=== PATIENT | female | born 1970 | race Caucasian/White ===

== ENCOUNTER → 2016-06-16 | Outpatient (CLI) | payer OTHER ==
[~2016-06-16] MED LIST: ATEN50TA8 PO; SYN100 PO; TRAMTAB5
[2016-06-16 13:57] LABS: ESTIMATED AVERAGE GLUCOSE 214 mg/dl; HA1C FLAG Normal (Normal)
[2016-06-16 14:24] LABS: THYROID STIMULATING HORMONE 0.377 uIu/ml (0.300-4.500)
[2016-06-16 20:04] LABS: RATIO 15.1 mcg/mg (0-30.0)
== END | disposition home or self-care (01) ==
LOC: C.LABMFLN 17:40
PROVIDERS: ATTEND Internal Medicine Endocrinology, Diabetes & Metabolism
DX: E10.9 Type 1 diabetes mellitus without complications (principal)

== ENCOUNTER → 2017-07-31 | Outpatient (CLI) | payer OTHER ==
[2017-07-31 15:04] LABS: ALT/SGPT 30 U/L (12-78); AST/SGOT 19 U/L (15-37); BLOOD UREA NITROGEN 16 mg/dl (7-18); CALCIUM 9.1 mg/dl (8.5-10.1); CARBON DIOXIDE 30 mmol/L (21-32); CREATININE 0.83 mg/dl (0.60-1.20); GLUCOSE 133 mg/dl (70-99); SODIUM 137 mmol/L (136-145)
[2017-07-31 15:14] LABS: ALKALINE PHOSPHATASE 97 U/L (45-117); LDL CHOLESTEROL (DIRECT) 85 mg/dl; TOTAL PROTEIN 7.8 gm/dl (6.4-8.2)
[2017-08-01 06:39] LABS: HEMOGLOBIN A1C 9.5 % (4.5-5.6)
== END | disposition home or self-care (01) ==
LOC: C.LAB1850 13:36
PROVIDERS: ATTEND Internal Medicine Endocrinology, Diabetes & Metabolism
DX: E03.9 Hypothyroidism, unspecified (principal); E10.9 Type 1 diabetes mellitus without complications; E78.5 Hyperlipidemia, unspecified

== ENCOUNTER 2023-11-23 05:56 | Observation (INO) ==
--- NOTE | 2023-11-10 11:19 | Anesthesiology Consultation ---
Date of Service November 10, 2023 Assessment & Plan (1) Encounter for pre-operative examination: - Check BSG AM DOS - Infectious disease screening: Per assessment on 11/10/23: No known infectious disease contacts or current infectious disease symptoms. No noted recent Covid positive test result. - Cardiology visit (10/10/23): "Patient was in her usual state of health when she woke up on the morning of 10/01/2023, however after she got to work she started to notice intermittent palpitations described as heart racing with her heart rate increasing into the 120s and 130's. These palpitations were occurring off and on throughout the day. After she arrived at home and was making dinner the palpitations started again, but they did not go away. This is when she noticed her blood pressure was starting to go up and she was feeling anxious. In total her heart rate was in the 130's for a total of about 2 hours altogether. She decided to go to the [facility] ER for further evaluation. She had not taken her evening dose of Toprol-XL before going to the ER. Her EKG's showed atrial tachycardia at a rate of 135 beats per minute with downsloping ST segment depression in the inferolateral leads. EKG #2 showed atrial tachycardia at a rate of 133 beats per minute with downsloping ST segment depression in the inferolateral leads.. Her initial high sensitivity troponin T was normal at 8 ng/L and her follow-up value was < 6 ng/L. As she was having an IV started, the patient's atrial tachycardia broke and she was in a normal sinus rhythm at 82 bpm. The ER staff gave her her usual evening dose of Toprol-XL. She remained in a normal sinus rhythm thereafter. Patient has not had any recurrent palpitations since that time. Her blood pressure is still variable. Her average blood pressure reading according to her home readings is 142/91. Recommend the following.. Order for a dobutamine stress echocardiogram given to the patient.. DSE ordered because of her downsloping ST segment depression in the inferolateral leads when she was in atrial tachycardia, I have reassured her that her negative high sensitivity troponin T levels are reassuring that she did not have ischemia.. Increase Amlodipine to 5 mg daily.. Continue Toprol.. Continue Lisinopril.. Continue Aspirin 81 mg daily." - Patient had subsequent DSE done 10/18/23- notes stress echo negative for inducible ischemia but stress EKG portion positive for ischemia. [facility] 10/18/23 150/80. Workload message sent to [facility] regarding upcoming surgery. Received response from cardio 11/13/23, "No further stress testing is needed. Patient is an acceptable surgical risk to proceed with adrenalectomy as planned." Chart Review Chart Review: Acceptable Risk for Surgery (pending evaluation DOS) and Patient NOT seen in Pre Admission Testing History Surgery Operation Date: 11/23/23 09:30 Proposed Procedures p Robotic Assisted Laparoscopic Adrenalectomy-Left - Makr Padron, DO Height/Weight Height: 5 ft 6 in Weight: 61.235 kg Allergies Allergy/AdvReac Type Severity Reaction Status Date / Time No Known Allergies Allergy Unknown Verified 10/11/23 13:08 Medications Home Medications Medication Instructions Recorded Confirmed Last Taken aspirin 81 mg chewable tablet 81 mg PO DAILY #100 tabs 02/05/19 11/10/23 Unknown blood sugar diagnostic (Accu-Chek #10 ea 02/05/19 10/11/23 Unknown Anastasia Plus test strips) hydrocodone 5 mg-acetaminophen 300 1 tab PO Q6H PRN Pain 02/05/19 11/10/23 Unknown mg tablet insulin glargine 100 unit/mL (3 21 units subcut .COMPLEX 02/05/19 11/10/23 Unknown mL) subcutaneous pen (Basaglar KwikPen U-100 Insulin) omeprazole 40 mg capsule,delayed 40 mg PO QAM PRN Acid Reflux 03/09/20 11/10/23 Unknown release acetone (urine) test (Ketostix #25 ea 11/24/21 10/11/23 Unknown strips) blood-glucose sensor (Dexcom G6 #2 ea 03/02/22 10/11/23 Unknown Sensor device) subcutaneous insulin pump (t:slim #1 ea 03/02/22 10/11/23 Unknown X2 Basal-IQ Insulin Pump) glucagon HCl 1 mg solution for 1 mg subcut Q20M PRN hypoglycemia 03/03/22 11/10/23 Unknown injection (Glucagon (HCl) #1 ea Emergency Kit) insulin syringe-needle U-100 1 mL #100 ea 09/14/22 10/11/23 Unknown 31 gauge x 5/16" (BD Insulin Syringe Ultra-Fine) atorvastatin 20 mg tablet 20 mg PO HS #90 tabs 01/12/23 11/10/23 Unknown metoprolol succinate 50 mg 50 mg PO BID 03/27/23 11/10/23 Unknown tablet,extended release 24 hr lisinopril 40 mg tablet 40 mg PO DAILY #90 tabs 03/28/23 11/10/23 Unknown fluocinonide 0.05 % topical 1 applic topical BID PRN Skin 05/18/23 11/10/23 Unknown solution Irritation insulin glulisine U-100 100 50 unit (0.5 mL) continuous 08/08/23 11/10/23 Unknown unit/mL subcutaneous solution subcutaneous infusion QAM #50 mL (Apidra U-100 Insulin) levothyroxine 112 mcg tablet 112 mcg PO Q OTHER DAY #45 tabs 08/25/23 11/10/23 Unknown levothyroxine 125 mcg tablet 125 mcg PO Q OTHER DAY #45 tabs 08/25/23 11/10/23 Unknown dexamethasone 1 mg tablet 3 mg (3 x 1 mg) PO .COMPLEX #3 tabs 08/29/23 11/10/23 Unknown amlodipine 5 mg tablet 5 mg PO DAILY #90 tabs 10/10/23 11/10/23 Unknown cholecalciferol (vitamin D3) 1,250 50,000 unit PO Q7D #2 caps 10/18/23 11/10/23 Unknown mcg (50,000 unit) capsule albuterol sulfate 90 mcg/actuation 1 inh inhalation QID PRN sob 11/10/23 11/10/23 Unknown aerosol inhaler insulin aspart U-100 100 unit/mL 50 unit (0.5 mL) .Route DAILY 11/10/23 Unknown subcutaneous solution E11.9 #50 mL Past Medical History Medical History Adrenal adenoma B/L adrenal adenomas/nodules Adrenal mass, left COPD (chronic obstructive pulmonary disease) Coronary artery calcification Diabetes type 1, controlled Dyslipidemia Fatty liver History of COVID-19 (2020) Symptoms resolved History of diverticulosis HTN (hypertension) Hx of supraventricular tachycardia Hypothyroidism Insulin pump in place Osteoarthritis Paroxysmal atrial tachycardia Hx Past Family History Family History Father Diabetes Hypertension Kidney disease Sister Graves disease Mother Hypothyroid Lupus (systemic lupus erythematosus) Past Surgical History Surgical History History of bilateral tubal ligation History of breast lump/mass excision History of History of cryosurgery cervix History of endometrial ablation History of left salpingo-oophorectomy History of partial thyroidectomy History of postoperative nausea and vomiting Hx of cardiac catheterization (2009) no stents Hx of cholecystectomy Hx of colonoscopy Hx of hysterectomy Social History Smoking Status: Current every day smoker Smoking cigarettes per day: 20 per day- advised Do You Dip or Chew Tobacco: No Hx Alcohol Use: No Hx Substance Use: No substance use type: does not use Lab Results Anesthesia Preop Results Results Anesthesia Widget: WBC 5.26 K/ul (4.8-10.8) 11/02/23 Hgb 12.7 g/dl (12.0-16.0) 11/02/23 Hct 39.3 % (37.0-47.0) 11/02/23 Plt 181 K/uL (130-400) 11/02/23 Na 140 mmol/L (136-145) 11/02/23 K 4.1 mmol/L (3.5-5.1) 11/02/23 Cl 107 mmol/L (98-107) 11/02/23 CO2 28 mmol/L (21-32) 11/02/23 BUN 18 mg/dl (6-23) 11/02/23 Creat 0.70 mg/dl (0.6-1.2) 11/02/23 Glucose Level 256 mg/dl (70-99(Fasting)) H 11/02/23 TSH 1.365 uIu/ml (0.300-4.500) 10/10/23 HA1c 8.7 % (4.5-5.6) H 10/10/23 Testing Laboratory Results 11/02/23 Urine culture: probable skin gisel 10/11/23 UA: negative 04/21/23 (labs done for evaluation of adrenal mass*) Ur Norepineph 51 (WNL) Calc Tot E+NE 51 (WNL) Urine Dopamine 226 (WNL) Creatinine, 24 1.15 (WNL) Metanephrine 143 (WNL) Normet Urine 356 (WNL) Total Metanephr 499 (WNL) Electrocardiogram Date: 10/01/23 NSR at 83bpm. NS TWA. Chest X-Ray Date: 10/01/23 Findings: + NAD CT PE Date: 10/01/23 No acute findings. Stress Test Date: 10/18/23 Type: DSE Stress echo negative for inducible ischemia. ECG stress test positive for inducible ischemia with 1mm horizontal ST depression leads II, III, AVF, V3-V6. Rest echo: LVEF 55-59%. Mild MR/TR. Mildly enlarged proximal ascending thoracic aorta. Other Testing CT Abdomen/Pelvis Date: 07/27/23 Bilateral adrenal adenomas, stable in size since CT 06/01/2023.
--- NOTE | 2023-11-22 08:54 | Communication Note ---
Patient scheduled for "Robotic Assisted Laparoscopic Adrenalectomy - Left" with Dr. Padron on 11/23/23. Surgeon's office called over to PAT stating patient was unsure if insulin pump n eeded removed or moved for procedure as it may be in the surgical field. Explained to surgeon's office that it would be up to surgeon's discretion if insulin pump needed removed/moved for procedure and if so patient would need to discuss with whoever manages diabetes if insulin pump does not routinely get replaced/moved around. Per later update from surgeon's office- patient's insulin pump is located on right side of abdomen- procedure is being done on left side. Patient does have small lump from where insulin pump used to be located on the left side. Surgeon has no issues. No issues from anesthesia standpoint as long as area does not seem infected DOS.
[2023-11-23] MEDS ORDERED: ACETAMINOPHEN 1000 MG/100 ML IV IV ONE (06:30)
[2023-11-23] MEDS ORDERED: REMIFENTANIL HCL 1 MG VIAL IV ONE (06:30)
--- NOTE | 2023-11-23 06:38 | History & Physical Report ---
Date of Service November 23, 2023 Assessment & Plan (1) Adrenal adenoma: (2) Adrenal mass, left: (3) Diabetes type 1, controlled: (4) HTN (hypertension): (5) Coronary artery calcification: (6) Paroxysmal atrial tachycardia: (7) COPD (chronic obstructive pulmonary disease): Plan Patient with 4.8 cm mass/lesion of the left adrenal. Had underwent endocrine assessment. Possible cortisol functionality. Extensive evaluation. Large size and features extensively reviewed. Patient has multiple comorbidities and underwent extensive preoperative assessment and clearance. Risks and benefits discussed at length for procedure. These include bleeding, infection, injury to surrounding tissues or organs, and risks associated with anesthesia. Patient states understanding and agrees to proceed. Will sign consent and proceed. Plan for Left Robot Assisted laparoscopic adrenalectomy. Endocrine recommended steroid management with procedure due to possible cortisol functionality. Will plan for post procedure monitoring. History of Present Illness Primary Care Provider: Kira Vogt Patient here for procedure. No changes in medical issues. No major changes in urinary issues. Continued issues and concerns. No change in pain or discomfort. No severe fevers or chills. No chest pain or shortness of breath. Patient with 4.8 cm lesion of left adrenal gland. Risks and benefits discussed at length for procedure. These include bleeding, infection, injury to surrounding tissues or organs, and risks associated with a nesthesia. Patient and/or family states understanding and agrees to proceed. Consent and supporting information completed. Allergies Allergy/AdvReac Type Severity Reaction Status Date / Time No Known Allergies Allergy Unknown Verified 11/23/23 06:19 Home Medications Medication Instructions Recorded Confirmed Type aspirin 81 mg chewable tablet 81 mg PO DAILY #100 tabs 02/05/19 11/23/23 History blood sugar diagnostic (Accu-Chek #10 ea 02/05/19 11/15/23 History Anastasia Plus test strips) hydrocodone 5 mg-acetaminophen 300 1 tab PO Q6H PRN Pain 02/05/19 11/23/23 History mg tablet insulin glargine 100 unit/mL (3 21 units subcut .COMPLEX 02/05/19 11/23/23 History mL) subcutaneous pen (Basaglar KwikPen U-100 Insulin) omeprazole 40 mg capsule,delayed 40 mg PO QAM PRN Acid Reflux 03/09/20 11/23/23 History release acetone (urine) test (Ketostix #25 ea 11/24/21 11/15/23 Rx strips) blood-glucose sensor (Dexcom G6 #2 ea 03/02/22 11/15/23 Rx Sensor device) subcutaneous insulin pump (t:slim #1 ea 03/02/22 11/15/23 Rx X2 Basal-IQ Insulin Pump) glucagon HCl 1 mg solution for 1 mg subcut Q20M PRN hypoglycemia 03/03/22 11/23/23 Rx injection (Glucagon (HCl) #1 ea Emergency Kit) insulin syringe-needle U-100 1 mL #100 ea 09/14/22 11/15/23 Rx 31 gauge x 5/16" (BD Insulin Syringe Ultra-Fine) atorvastatin 20 mg tablet 20 mg PO HS #90 tabs 01/12/23 11/23/23 Rx metoprolol succinate 50 mg 50 mg PO BID 03/27/23 11/23/23 History tablet,extended release 24 hr fluocinonide 0.05 % topical 1 applic topical BID PRN Skin 05/18/23 11/23/23 History solution Irritation insulin glulisine U-100 100 50 unit (0.5 mL) continuous 08/08/23 11/10/23 Rx unit/mL subcutaneous solution subcutaneous infusion QAM #50 mL (Apidra U-100 Insulin) levothyroxine 112 mcg tablet 112 mcg PO Q OTHER DAY #45 tabs 08/25/23 11/23/23 Rx levothyroxine 125 mcg tablet 125 mcg PO Q OTHER DAY #45 tabs 08/25/23 11/23/23 Rx amlodipine 5 mg tablet 5 mg PO DAILY #90 tabs 10/10/23 11/23/23 Rx albuterol sulfate 90 mcg/actuation 1 inh inhalation QID PRN sob 11/10/23 11/23/23 History aerosol inhaler insulin aspart U-100 100 unit/mL 50 unit (0.5 mL) .Route DAILY 11/10/23 11/23/23 Rx subcutaneous solution E11.9 #50 mL cholecalciferol (vitamin D3) 50 50 mcg PO DAILY 11/23/23 11/23/23 History mcg (2,000 unit) capsule (Vitamin D3) lisinopril 40 mg tablet 20 mg PO DAILY 11/23/23 11/23/23 History Past Med/Surg History Problem List Encounter for pre-operative examination Vitamin D deficiency (Chronic) Medical History Osteoarthritis Insulin pump in place Dyslipidemia Coronary artery calcification Paroxysmal atrial tachycardia Hx Adrenal mass, left Diabetes type 1, controlled Adrenal adenoma B/L adrenal adenomas/nodules Hypothyroidism History of diverticulosis Fatty liver HTN (hypertension) History of COVID-19 (2020) Symptoms resolved COPD (chronic obstructive pulmonary disease) Hx of supraventricular tachycardia Surgical History History of postoperative nausea and vomiting Hx of colonoscopy Hx of cardiac catheterization (2009) no stents History of cryosurgery cervix Hx of cholecystectomy History of History of breast lump/mass excision History of endometrial ablation Hx of hysterectomy History of bilateral tubal ligation History of left salpingo-oophorectomy History of partial thyroidectomy Family History Father Diabetes Hypertension Kidney disease Sister Graves disease Mother Hypothyroid Lupus (systemic lupus erythematosus) Social History Smoking Status: Current every day smoker Tobacco Type: Cigarettes Cigarettes Per Day: 20 per day- advised; Second Hand Exposure: No; Do You Dip or Chew Tobacco: No; Tobacco Cessation Education Requested by Patient: No Hx Alcohol Use: No Hx Substance Use: No Preferred Language: Amharic Communication Ability: Effective Case Advocate Required: No Beliefs That Will Affect Care: None marital status: Single Current Living Situation: Family Other Information That Helps Us Care for You: No Feels Safe at Home: Yes Safety Concerns: Feels Safe At This Time Assistive Devices: None Review of Systems All systems reviewed & are unremarkable except as noted in HPI & below Physical Exam Physical Exam: General: Alert/Arousable. No Acute illness. . HEENT: Inspection normal. Normal inspection of face. Normal inspection of neck. Psychologic: Normal affect/No change in mentation. Respiratory: No use of accessory muscles. No respiratory changes or exacerbation or changes with tachypnea or dyspnea. Cardiovascular: No tachycardia Skin: Pick[place] and Dry. No new rashes or visible lesions. Abdomen: Normal inspection. No guarding. Results & Data Vital Signs (Past 12 Hours) Vital Signs Temp Pulse Resp BP Pulse Ox O2 Del Method 11/23/23 06:20 36.5 C 65 18 153/93 H 100 Room Air PG Care Time/CCT Total # of Minutes Spent Total Time Spent with Patient: Total time spent is greater than 50% in coordination of care (as documented) at patient's floor/unit and/or counseling patient: Coding Level of Care Code None Diagnoses Adrenal adenoma D35.00 Adrenal mass, left E27.8 Diabetes type 1, controlled E10.9 HTN (hypertension) I10 Coronary artery calcification I25.10; I25.84 Paroxysmal atrial tachycardia I47.19 COPD (chronic obstructive pulmonary disease) J44.9
[2023-11-23] MEDS: LR 15ML/HR IV SCH (06:45)
[2023-11-23] MEDS ORDERED: fentaNYL citrate PF 100 MCG/2 ML VIAL ONE (06:56)
[2023-11-23] MEDS ORDERED: MIDAZOLAM HCL 1 MG/ML 2ML VIAL ONE (06:57)
[2023-11-23] MEDS ORDERED: ROCURONIUM BROMIDE 10 MG/ML 5 ML VIAL IV ONE ×3 (06:59→09:29)
[2023-11-23] MEDS ORDERED: GLYCOPYRROLATE 0.2 MG/ML VIAL ONE (06:59)
[2023-11-23] MEDS: SCOPOLAMINE 1 MG/72 HR TDSY PATCH TD ONE ×2 (06:59→07:08)
[2023-11-23] MEDS ORDERED: ONDANSETRON INJ 2 MG/ML 2 ML VIAL ONE (06:59)
[2023-11-23] MEDS ORDERED: DEXAMETHASONE SOD INJ 4 MG/ML VIAL ONE ×2 (06:59→09:42)
[2023-11-23] MEDS ORDERED: PROPOFOL IV EMULSION 10 MG/ML 20 ML VIAL IV ONE ×2 (06:59)
[2023-11-23] MEDS ORDERED: LIDOCAINE 2% 2 ML VIAL/AMP(20MG/ML) INFIL ONE (06:59)
[2023-11-23] MEDS ORDERED: DexMEDEtomidine HCL IV 100 MCG/ML VIAL IV ONE (07:00)
[2023-11-23] MEDS ORDERED: PROMETHAZINE HCL 6.25 MG in SODIUM CHLORIDE 0.9% 50 ML IV PRN (07:23)
[2023-11-23] MEDS ORDERED: ATROPINE SULFATE 0.1 MG/ML 10ML SYR IV PRN (07:23)
[2023-11-23] MEDS ORDERED: HYDROmorphone INJ 1 MG/ML SYRINGE IV PRN (07:23)
[2023-11-23] MEDS ORDERED: ONDANSETRON INJ 2 MG/ML 2 ML VIAL IV PRN ×2 (07:23→12:43)
[2023-11-23] MEDS ORDERED: ePHEDrine sulfate 50 MG/ML AMP IV PRN (07:23)
[2023-11-23] MEDS: ceFAZolin 2000MG 2,000 MG/15 ML SYR IV SCH ×2 (07:34→17:00)
[2023-11-23] MEDS ORDERED: diphenhydrAMINE 50 MG/ML VIAL ONE (08:37)
[2023-11-23] MEDS ORDERED: PHENYLEPHRINE 100MCG/ML 10ML SYR IV ONE (09:11)
[2023-11-23] MEDS ORDERED: ePHEDrine sulfate 50 MG/5 ML SYR ONE (09:18)
[2023-11-23] MEDS: FLOSEAL HEMOSTATIC MATRIX 10ML TOP ONE (09:41)
[2023-11-23] MEDS: SURGICEL ABSORB HEMOSTAT 2IN X 14IN TOP ONE (09:41)
[2023-11-23] MEDS: TISSEEL FIBRIN SEALANT 10ML TOP ONE (09:42)
[2023-11-23] MEDS ORDERED: SUGAMMADEX SODIUM 200 MG/2 ML VIAL IV ONE (09:44)
[2023-11-23] MEDS ORDERED: HYDROmorphone INJ 2 MG/ML SYR/VIAL ONE (09:46)
[2023-11-23] MEDS: BUPIVACAINE 0.5 % 5 MG/1 ML MPF 30ML VIAL ONE (10:01)
--- NOTE | 2023-11-23 10:40 | Operative Report ---
PG Post Operative Report Pre & Post Diagnosis Operation Date: 11/23/23 07:35 Pre-Op Diagnosis: Left Adrenal Mass Post-Op Diagnosis: Left Adrenal Mass I identified the patient and participated in the time-out.: Yes Procedure Operation Date: 11/23/23 07:35 Actual Procedures p Robotic Assisted Laparoscopic Adrenalectomy - Left(Left) - Mark Padron DO Surgeon Mark Padron, II, DO Developer Support Engineer OZZY Alarcon Estimated Blood Loss 50 Findings Consistent with Post-Op Diagnosis Large adrenal nodule/mass Accessory spleen Specimens Left adrenal gland with adenoma Drains 18 Fr Cristobal Anesthesia Type General Complications none Disposition Disposition: Recovery Room Indications Patient with large adenoma of the adrenal gland. Patient underwent workup for functional status. Patient was specifically worked up for pheochromocytoma which was negative. Risks and benefits discussed at length. Description of Procedure The patient was brought to the operative suite and placed under general endotracheal intubation anesthesia in the supine position. The patient was transferred to lateral position with the right flank exposed. The patient was placed into a flex'ed position and then placed into mild reverse Trendelenberg. At this point, the patient prepped and draped in the usual sterile fashion and a timeout was completed. Preoperative weight based antibiotics had been given. LILLIE's and SCD's were placed on the patient's lower extremities. A catheter was placed by nursing using sterile technique. With the time out completed the patient was flexed and the skin was marked. The lateral port site was anesthetized. A small incision was made into the skin and subcutaneous tissues. A Varess needle was selected and placed. The needle was easily moved and it was irrigated and aspirated without any issues or concerns for placement. Insufflation commenced. Once insufflated, the lateral edge of the rectus sheath was marked and anesthetized. The skin was incised and a camera port was placed. The cavity was insufflated to 15 mmHG. The laparoscopic camera was placed and the abdominal cavity inspected. No concerning features were noted. At this point, the skin was marked for port placement and 8mm working ports were placed. The skin was anesthetized down to fascia and an approx 1cm incision was made to place the 2 x 8mm ports. A 12mm and 5 mm video production assistant ports were also placed in similar fashion under direct visualization along the midline. The robot was positioned and docked. The camera was placed and all trocars were positioned under direct visualization. Juliana Alarcon was integral in port placement, camera utilization, and docking procedure. She remained in sterile attire and then proceeded to assist the remainder of the case. The colon was mobilized medially to expose the retroperitoneum and the area assessed. Adhesions were freed to allow mobilization. A small amount of adhesions were noted from the colon and were freed. These were dissected with blunt technique. Cautery was used to assist dissection and control bleeding. The retroperitoneal fat was assessed. The spleen was found to be mobile with limited attachments. An accessory spleen was discovered in the omentum. tissue around the descending colon. Care was taken to monitor the surrounding vessels and organs. The adenoma as well as the gonadal vein and ureter were identified. Care was taken to dissect down along the gonadal vein and following superiorly to the renal vein. This was then followed superiorly. Dissection stayed toward the midline and the ureter and gonadal vein were avoided. The dissection was followed to the renal pelvis. The Renal Vein was identified and exposed. Dissection was taken further superior. The adenoma began to limit dissection. This was then mobilized and care was taken to slowly dissect between the adenoma/adrenal gland and the kidney/renal vein. The Adrenal vein was identified. Two hemolock clips were used to clamp the vein. No changes in heart rate or blood pressure occurred with placement of the clips. A third clip was placed. The vein was then transected. The adrenal gland with the large adenoma was then slowly dissected. Small vessels were ligated and cut as dissection progressed. Additional clips were needed medially and laterally and posteriorly due to larger venous vessels. The posterior, inferior, and superior surfaces were dissected free. No major bleeding or other issues. The specimen was placed into a catch bag and set to the side. Surgicel hemostatic agent sheets were placed under the spleen and on the dissection bed/edge. Hemostatic agents Tisseel and Floseal were also placed. Hemostatic agent was also placed on the renal vein/vessels and the adrenal vein stump. No major bleeding or other issues. The entire dissection space was inspected one final time. No bleeding or injuries or areas of concern were noted. No tumor or other concerning features were noted. The kidney appeared to be without injury or area of concern. At this point, the robot was undocked and moved away from the patient. The port sites were all assessed laparoscopically. The endoscopic bag was moved into the midline inferior video production assistant port. The other ports were assessed and no issues observed. The midline incision was opened further exposing fascia which was then opened in order to removed the mass within the bag. A running 1-0 PDS suture was used to close fascia. A 3-0 vicryl was used to approximate the subc utaneous tissues. The skin at each site was closed with a running Monocryl 4-0 suture. The area was cleaned and surgical glue was placed. A bandage placed on each incision. The patient was cleaned and bandaged. He was moved back into the supine position The patient was cleaned, aroused from anesthesia, and transferred to the pacu in stable condition having tolerated the procedure well with no complications. I was present and participated in all aspects of the procedure. OZZY Dent was critical in the portions as mentioned above. I attest to the content of the Intraoperative Record and any orders documented therein. Any exceptions are noted below.
[2023-11-23] MEDS: fentaNYL citrate PF 100 MCG/2 ML VIAL IV PRN (10:58)
[2023-11-23 11:16] LABS: Basophils # (auto) 0.03 K/uL (0.00-0.20); Basophils % (auto) 0.4 %; Eosinophils # (auto) 0.09 K/uL (0.00-0.50); Eosinophils % (auto) 1.1 %; Hematocrit (blood only) 36.4 % (37.0-47.0); Hemoglobin 11.4 g/dl (12.0-16.0); Immature Granulocytes # (auto) 0.02 K/uL (0.01-0.20); Immature Granulocytes % (auto) 0.2 %; Lymphocytes % (auto) 14.8 %; Mean Corpuscular Hemoglobin 30.4 pg (25.0-34.0); Mean Corpuscular Hgb Conc 31.3 g/dL (32.0-36.0); Mean Corpuscular Volume 97.1 fL (80.0-100.0); Mean Platelet Volume 11.4 fL (9.4-12.4); Monocytes # (auto) 0.27 K/uL (0.11-0.59); Monocytes % (auto) 3.3 %; Neutrophils # (auto) 6.52 K/uL (1.40-6.50); Neutrophils % (auto) 80.2 %; Platelet Count 131 K/uL (130-400); RDW Coefficient of Variation 12.4 % (11.5-14.5); Red Blood Count 3.75 M/uL (4.20-5.40); White Blood Count 8.13 K/ul (4.8-10.8)
--- NOTE | 2023-11-23 11:27 | Anesthesiology Progress Note ---
Date of Service November 23, 2023 Anesthesia Post Procedure Vital Signs Vital Signs: Temp Pulse Pulse Resp BP Pulse Ox O2 Del Method 11/23/23 11:20 62 12 114/68 99 Room Air 11/23/23 11:10 69 12 118/68 98 Room Air 11/23/23 11:00 59 L 12 121/70 100 Room Air 11/23/23 10:50 58 L 14 110/67 100 Oxymask 11/23/23 10:40 59 L 14 113/67 100 Oxymask 11/23/23 10:33 36 C L 65 16 114/72 99 Oxymask 11/23/23 06:20 36.5 C 65 18 153/93 H 100 Room Air O2 Flow Rate 11/23/23 11:20 11/23/23 11:10 11/23/23 11:00 11/23/23 10:50 14 11/23/23 10:40 14 11/23/23 10:33 14 11/23/23 06:20 Pain Intensity Abdomen: Pain Intensity: 4 Transfer of Care Handoff Completed per policy Notes Mental Status: alert / awake / arousable Patient Amnestic to Procedure: Yes Nausea / Vomiting: adequately controlled Pain: adequately controlled Airway Patency, RR, SpO2: stable & adequate BP & HR: stable & adequate Hydration State: stable & adequate Anesthetic Complications: no major complications apparent and Pt Satisfied with anesthetic care Notes: post op glucose 92
[2023-11-23 11:35] LABS: BUN Creatinine Ratio 28.8 (10-20); Calcium 8.6 mg/dl (8.6-10.3); Creatinine Clr Calc Pharmacy 82.5 ml/min; Est GFR (African American) 108.2 ml/min; Est GFR (Non-African American) 93.4 ml/min; Potassium 3.4 mmol/L (3.5-5.1)
[2023-11-23] MEDS ORDERED: GLUCOSE 10 TAB/TUBE PO PRN (12:43)
[2023-11-23] MEDS ORDERED: ALBUTEROL HFA 8 GM INHALER INH PRN (12:43)
[2023-11-23] MEDS ORDERED: NON-FORMULARY MEDICATION (Insulin Glargine [Basaglar Kwikpen U-100 Insulin] 100 unit/mL (3 SQ SCH (12:43)
[2023-11-23] MEDS ORDERED: MoRPHine SULFATE 2 MG/ML CARP IV PRN (12:43)
[2023-11-23] MEDS ORDERED: INSULIN ASPART 100 UNITS/ML VIAL SC PRN (12:43)
[2023-11-23] MEDS ORDERED: INSULIN, Rapid-Acting PUMP SC SCH (12:43)
[2023-11-23] MEDS ORDERED: GLUCOSE 40% GEL 15 GM TUBE PO PRN (12:43)
[2023-11-23] MEDS ORDERED: CARBOHYDRATES FOR HYPOGLYCEMIA PO PRN (12:43)
[2023-11-23] MEDS ORDERED: oxyCODONE HCL IR 5 MG TAB (IMMEDIATE RELEASE) PO PRN (12:43)
[2023-11-23] MEDS ORDERED: GLUCAGON FOR INJ 1 MG VIAL SQ PRN (12:43)
[2023-11-23] MEDS ORDERED: DEXTROSE 50% 50 ML SYRINGE IV PRN (12:43)
[2023-11-23] MEDS: NovoLIN-R INSULIN PER UNIT CHARGE ONE (12:48)
--- NOTE | 2023-11-23 14:00 | Hospitalist Consultation ---
Date of Consultation November 23, 2023 Assessment & Plan (1) Adrenal mass, left: S/p Left adrenalectomy with Dr. Padron on 11/22 - diet/dvt proh/pain control per primary team - EBL 50 - Hgb post op 11.4 - dilutional vs acute blood loss anemia Plan for hydrocortison 20 qAM and 10mg qPM per (2) Diabetes type 1, controlled: Patient uses insulin bump at baseline - reports fluctuating sugars Patient hyperglycemic in the OR (pump off), was 80s in PACU and given juice, and then 300s+ this afternoon - Site replaced 11/22 and pump seems to be functioning properly Blood sugars increasing after surgery, discussed with patient and inbound call center agent, trying to avoid NPH at this time and adjust her pump rates since she will be going home on steriods. 20meq K given for K 3.4, monitor for hypokalemia with increase insulin needs (3) HTN (hypertension): Home medications - amlodipine, lisinopril and metoprolol Hold lisinopril for POD#1 monitor for hypotension Plan Chronic stable problems: * COPD - non on maintenance therapy, continue prn inhaler * shelley's - continue synthroid * CAD - continue atorvastatin, ASA DVT proh: heparin SQ q12 Dispo: continued inpatient stay, monitoring BS and vitals. Thank you for allowing us to participate in the care of this patient, we will continue to follow. Supervising Physician Co-Signing Physician Notes Patient was seen and examined independently I discussed the case with Leigh Morales PAC I reviewed pertinent past medical social family history and also the plan of c are and agree with the plan of care. Patient was seen in her room she was dealing with hyperglycemia she had worked with the inbound call center agent to have frequent boluses. If this does not work we will likely give her some longer acting insulin to augment her insulin pump. Patient is planning on steroid replacement for her adrenalectomy. This will be the weight of hydrocortisone 20 in the morning and 10 mg in the evening She is awake alert appropriate pain is controlled card exam is regular lungs are clear Any exceptions will be noted below History of Present Illness Reason for Consultation: Post Op medical management Attending Physician: Mark Padron, II, DO History of Present Illness Ms. Lara is a 53F with a PMH of DMT1, COPD, hashimotos, HTN, HLD that presents for elective surgery with Dr. Padron. Patient is s/p left adrenalectomy. Patient seen resting in bed after surgery, current reporting back pain and nausea and overall not feeling well. She attributes her nausea and poor feeling to her increasing blood sugar. She is putting her insulin pump on as I am in there interviewing her. Her pump was off during surgery and she is a type 1 diabetic. RN reports sugars were high during the operation but 80 in PACU and patient felt low so was given juice. Patient believes termite inspector plan is just steroids for a few weeks, has endocrinology follow up next week. Allergies Allergy/AdvReac Type Severity Reaction Status Date / Time No Known Allergies Allergy Unknown Verified 11/23/23 06:19 Home Medications Medication Instructions Recorded Confirmed Type aspirin 81 mg chewable tablet 81 mg PO DAILY #100 tabs 02/05/19 11/23/23 History blood sugar diagnostic (Accu-Chek #10 ea 02/05/19 11/15/23 History Anastasia Plus test strips) hydrocodone 5 mg-acetaminophen 300 1 tab PO Q6H PRN Pain 02/05/19 11/23/23 History mg tablet insulin glargine 100 unit/mL (3 21 units subcut .COMPLEX 02/05/19 11/23/23 History mL) subcutaneous pen (Basaglar KwikPen U-100 Insulin) omeprazole 40 mg capsule,delayed 40 mg PO QAM PRN Acid Reflux 03/09/20 11/23/23 History release acetone (urine) test (Ketostix #25 ea 11/24/21 11/15/23 Rx strips) blood-glucose sensor (Dexcom G6 #2 ea 03/02/22 11/15/23 Rx Sensor device) subcutaneous insulin pump (t:slim #1 ea 03/02/22 11/15/23 Rx X2 Basal-IQ Insulin Pump) glucagon HCl 1 mg solution for 1 mg subcut Q20M PRN hypoglycemia 03/03/22 11/23/23 Rx injection (Glucagon (HCl) #1 ea Emergency Kit) insulin syringe-needle U-100 1 mL #100 ea 09/14/22 11/15/23 Rx 31 gauge x 5/16" (BD Insulin Syringe Ultra-Fine) atorvastatin 20 mg tablet 20 mg PO HS #90 tabs 01/12/23 11/23/23 Rx metoprolol succinate 50 mg 50 mg PO BID 03/27/23 11/23/23 History tablet,extended release 24 hr fluocinonide 0.05 % topical 1 applic topical BID PRN Skin 05/18/23 11/23/23 Hi story solution Irritation insulin glulisine U-100 100 50 unit (0.5 mL) continuous 08/08/23 11/10/23 Rx unit/mL subcutaneous solution subcutaneous infusion QAM #50 mL (Apidra U-100 Insulin) levothyroxine 112 mcg tablet 112 mcg PO Q OTHER DAY #45 tabs 08/25/23 11/23/23 Rx levothyroxine 125 mcg tablet 125 mcg PO Q OTHER DAY #45 tabs 08/25/23 11/23/23 Rx amlodipine 5 mg tablet 5 mg PO DAILY #90 tabs 10/10/23 11/23/23 Rx albuterol sulfate 90 mcg/actuation 1 inh inhalation QID PRN sob 11/10/23 11/23/23 History aerosol inhaler insulin aspart U-100 100 unit/mL 50 unit (0.5 mL) .Route DAILY 11/10/23 11/23/23 Rx subcutaneous solution E11.9 #50 mL cholecalciferol (vitamin D3) 50 50 mcg PO DAILY 11/23/23 11/23/23 History mcg (2,000 unit) capsule (Vitamin D3) lisinopril 40 mg tablet 20 mg PO DAILY 11/23/23 11/23/23 History Patient History Medical History Osteoarthritis Insulin pump in place Dyslipidemia Coronary artery calcification Paroxysmal atrial tachycardia Hx Adrenal mass, left Diabetes type 1, controlled Adrenal adenoma B/L adrenal adenomas/nodules Hypothyroidism History of diverticulosis Fatty liver HTN (hypertension) History of COVID-19 (2020) Symptoms resolved COPD (chronic obstructive pulmonary disease) Hx of supraventricular tachycardia Surgical History History of postoperative nausea and vomiting Hx of colonoscopy Hx of cardiac catheterization (2009) no stents History of cryosurgery cervix Hx of cholecystectomy History of History of breast lump/mass excision History of endometrial ablation Hx of hysterectomy History of bilateral tubal ligation History of left salpingo-oophorectomy History of partial thyroidectomy Family History Father Diabetes Hypertension Kidney disease Sister Graves disease Mother Hypothyroid Lupus (systemic lupus erythematosus) Social History Smoking Status: Current every day smoker Tobacco Type: Cigarettes Cigarettes Per Day: 20 per day- advised; Second Hand Exposure: No; Do You Dip or Chew Tobacco: No; Tobacco Cessation Education Requested by Patient: No Hx Alcohol Use: No Hx Substance Use: No Preferred Language: Guyanese Communication Ability: Effective Masticator Required: No Beliefs That Will Affect Care: None marital status: Single Current Living Situation: Family Other Information That Helps Us Care for You: No Feels Safe at Home: Yes Safety Concerns: Feels Safe At This Time Assistive Devices: None Review of Systems Review of Systems: All systems reviewed & are unremarkable except as noted in Subjective Physical Exam Physical Exam: General: NAD, VS as above Resp: normal respiratory effort, lungs clear to auscultation CV: RRR, no murmur, Abd: skin glue over abdominal incision, insulin pump in place. soft Extremities: Moves all extremities, no edema Neuro: A&O x3, Results & Data Results & Data Vital Signs (Past 12 Hours) Vital Signs Temp Pulse Pulse Resp BP Pulse Ox O2 Del Method 11/23/23 13:05 72 16 122/72 94 Room Air 11/23/23 12:35 36.4 C L 63 14 128/75 96 Room Air 11/23/23 11:55 36.4 C L 72 14 132/79 96 Room Air 11/23/23 11:30 36 C L 65 12 124/73 95 Room Air 11/23/23 11:20 62 12 114/68 99 Room Air 11/23/23 11:10 69 12 118/68 98 Room Air 11/23/23 11:00 59 L 12 121/70 100 Room Air 11/23/23 10:50 58 L 14 110/67 100 Oxymask 11/23/23 10:40 59 L 14 113/67 100 Oxymask 11/23/23 10:33 36 C L 65 16 114/72 99 Oxymask 11/23/23 06:20 36.5 C 65 18 153/93 H 100 Room Air O2 Flow Rate 11/23/23 13:05 11/23/23 12:35 11/23/23 11:55 11/23/23 11:30 11/23/23 11:20 11/23/23 11:10 11/23/23 11:00 11/23/23 10:50 14 11/23/23 10:40 14 11/23/23 10:33 14 11/23/23 06:20 Laboratory Results cbc and chemistry reviewed PG Care Time/CCT Total # of Minutes Spent Total Time Spent with Patient: Total time spent is greater than 50% in coordination of care (as documented) at patient's floor/unit and/or counseling patient: Coding Level of Care Code 57051 IN/OBS CONSULT LVL 3,45M Diagnoses Adrenal mass, left E27.8 Diabetes type 1, controlled E10.9 HTN (hypertension) I10
[2023-11-23] MEDS: MoRPHine SULFATE 4 MG/ML 1 ML CARP\\VIAL IV PRN (14:12)
[2023-11-23] MEDS: SODIUM CHLORIDE 0.9% 1,000 ML IV SCH (14:13)
[2023-11-23] MEDS: ACETAMINOPHEN 325 MG TAB PO SCH (15:19)
[2023-11-23] MEDS: POTASSIUM CHLORIDE CRTAB 20 MEQ TABCR PO STA (15:19)
[2023-11-23] MEDS: HYDROCORTISONE SOD 50 MG in SYRINGE 0 ML IV ONE (15:20)
[2023-11-23] MEDS ORDERED: CHECK SCOPOLAMINE PATCH PLACEMENT SCH (16:00)
[2023-11-23] MEDS: Continuous Glucose Monitor SCH (17:01)
[2023-11-23] MEDS: oxyCODONE HCL IR 5 MG TAB (IMMEDIATE RELEASE) PO PRN (19:33)
[2023-11-23] MEDS ORDERED: lisinopril 20 MG TAB PO SCH (21:00)
[2023-11-23] MEDS: METOPROLOL SUCC 50MG EXT REL TAB PO SCH (21:18)
[2023-11-23] MEDS: DOCUSATE SODIUM 100 MG CAP PO SCH (21:18)
[2023-11-23] MEDS: ATORVASTATIN 20 MG TAB PO SCH (21:19)
[2023-11-23] MEDS: HEPARIN SOD 5,000 UNIT/0.5 ML VIAL SQ SCH (21:19)
[2023-11-24] MEDS: LEVOTHYROXINE SODIUM 125 MCG TABLET PO SCH (05:35)
[2023-11-24] MEDS: CHOLECALCIFEROL 25 MCG (1000 UNITS) TAB PO SCH (08:00)
[2023-11-24] MEDS: amLODIPine BESYLATE 5 MG TAB PO SCH (08:00)
[2023-11-24] MEDS: HYDROCORTISONE 10 MG TAB PO SCH ×2 (08:00→15:16)
[2023-11-24] MEDS: PANTOprazole 40 MG TAB PO PRN (08:00)
[2023-11-24] MEDS: ASPIRIN 81 MG ECTAB PO SCH (08:01)
--- NOTE | 2023-11-24 08:33 | Urology Progress Note ---
Date of Service November 24, 2023 Assessment & Plan (1) Adrenal mass, left: Plan: Patient is postop day #1 status post left adrenalectomy with Dr. Padron She is afebrile with stable vitals Labscreatinine 0.66, WBC 9.23, Hgb 10.5 Pain is adequately controlled with current regimen Will advance diet this morning Cristobal catheter out, monitor for void Encouraged ambulation in hallway Incisions appropriate Continue with hydrocortisone dosing per endocrinology until her follow-up Hospitalist service consulted for medical managementappreciate assistance Anticipate home later today if she continues to progress as expected Admission and Anticipated Discharge Date Admission Date: November 23, 2023 Subjective Patient seen and examined at bedside this morning She is awake and sitting up in bed about to eat breakfast Generally tolerating clear liquid diet, wishes to advance her diet She notes occasional nausea, but no vomiting Cristobal intact Pain has been adequately controlled She has ambulated around the room Review of Systems Constitutional: as per Subjective / HPI Gastrointestinal: as per Subjective / HPI Genitourinary: as per Subjective / HPI Physical Exam Constitutional: well developed and well nourished; no acute distress Respiratory: normal respiratory effort; no respiratory distress and no labored breathing Gastrointestinal (Abdomen): Inspection/Auscultation: abdomen normal to inspection Musculoskeletal: Head/Neck/Chest: normocephalic Skin: Incisions C/D/I with Dermabond Neurologic: moves all extremities and awake Psychiatric: Orientation: alert and oriented x 3 Genitourinary: Cristobal patent and draining clear yellow urine Results & Data Vital Signs (Past 12 Hours) Vital Signs Temp Pulse Resp BP Pulse Ox O2 Del Method 11/24/23 07:09 36.7 C 58 L 18 116/68 97 Room Air 11/24/23 03:12 36.7 C 64 16 125/73 96 Room Air 11/23/23 23:54 36.8 C 69 15 110/65 96 Room Air PG Care Time/CCT Total # of Minutes Spent Total Time Spent with Patient: Total time spent is greater than 50% in coordination of care (as documented) at patient's floor/unit and/or counseling patient: Coding Level of Care Code None Diagnoses Adrenal mass, left E27.8
[2023-11-24 08:35] LABS: Basophils # (auto) 0.03 K/uL (0.00-0.20); Basophils % (auto) 0.3 %; Eosinophils # (auto) 0.02 K/uL (0.00-0.50); Eosinophils % (auto) 0.2 %; Hematocrit (blood only) 32.1 % (37.0-47.0); Hemoglobin 10.5 g/dl (12.0-16.0); Immature Granulocytes # (auto) 0.04 K/uL (0.01-0.20); Immature Granulocytes % (auto) 0.4 %; Lymphocytes # (auto) 1.78 K/uL (1.20-3.40); Lymphocytes % (auto) 19.3 %; Mean Corpuscular Hemoglobin 31.1 pg (25.0-34.0); Mean Corpuscular Hgb Conc 32.7 g/dL (32.0-36.0); Mean Platelet Volume 11.9 fL (9.4-12.4); Monocytes # (auto) 0.73 K/uL (0.11-0.59); Monocytes % (auto) 7.9 %; Neutrophils # (auto) 6.63 K/uL (1.40-6.50); Neutrophils % (auto) 71.9 %; Platelet Count 130 K/uL (130-400); RDW Coefficient of Variation 12.5 % (11.5-14.5); RDW Standard Deviation 43.5 fL (36.4-46.3); Red Blood Count 3.38 M/uL (4.20-5.40); White Blood Count 9.23 K/ul (4.8-10.8)
[2023-11-24 08:45] LABS: BUN Creatinine Ratio 27.3 (10-20); Calcium 8.2 mg/dl (8.6-10.3); Creatinine Clr Calc Pharmacy 91.2 ml/min; Est GFR (African American) 116.1 ml/min; Est GFR (Non-African American) 100.1 ml/min; Potassium 3.8 mmol/L (3.5-5.1)
--- NOTE | 2023-11-24 11:22 | Hospitalist Progress Note ---
Date of Service November 24, 2023 Assessment & Plan (1) Adrenal mass, left: Plan: S/p Left adrenalectomy with Dr. Padron on 11/22 - diet/dvt proh/pain control per primary team - EBL 50 - Hgb post op 11.4 - dilutional vs acute blood loss anemia Plan for hydrocortison 20 qAM and 10mg qPM per (2) Diabetes type 1, controlled: Plan: Patient uses insulin bump at baseline - reports fluctuating sugars Patient hyperglycemic in the OR (pump off), was 80s in PACU and given juice, and then 300s+ this afternoon - Site replaced 11/22 and pump seems to be functioning properly Blood sugars well controlled on new pump settings Potassium WNL (3) HTN (hypertension): Plan: Home medications - amlodipine, lisinopril and metoprolol Discontinue amlodipine continue lisinopril and metoprolol at discharge monitor for hypotension - discussed with patient monitoring BP at home Plan Chronic stable problems: * COPD - non on maintenance therapy, continue prn inhaler * shelley's - continue synthroid * CAD - continue atorvastatin, ASA DVT proh: heparin SQ q12 Dispo: medically stable. Thank you for allowing us to participate in the care of this patient, we will continue to follow. Admission and Anticipated Discharge Date Admission Date: November 23, 2023 Subjective Patient sitting up in bed. Overall sugars have been well controlled over night - patient feels comfortable with current regment for home Passing minimal gas, she is excited for advaanced diet for lunch pain is controlled Review of Systems Review of Systems: All systems reviewed & are unremarkable except as noted in Subjective Physical Exam Physical Exam: General: NAD, VS as above Resp: normal respiratory effort, lungs clear to auscultation CV: RRR, no murmur, Abd: skin glue over abdominal incision, insulin pump in place. soft. no signs of infection Extremities: Moves all extremities, Results & Data Results & Data Vital Signs (Past 12 Hours) Vital Signs Temp Pulse Resp BP Pulse Ox O2 Del Method 11/24/23 07:09 36.7 C 58 L 18 116/68 97 Room Air 11/24/23 03:12 36.7 C 64 16 125/73 96 Room Air 11/23/23 23:54 36.8 C 69 15 110/65 96 Room Air Laboratory Results cbc and chemistry reviewed PG Care Time/CCT Total # of Minutes Spent Total Time Spent with Patient: Total time spent is greater than 50% in coordination of care (as documented) at patient's floor/unit and/or counseling patient: Coding Level of Care Code 10278 SUB INP/OBS CARE 2/35MIN Diagnoses Adrenal mass, left E27.8 Diabetes type 1, controlled E10.9 HTN (hypertension) I10
--- NOTE | 2023-11-24 13:56 | Discharge Summary ---
Date of Service November 24, 2023 Admission HPI Per Admitting Provider Patient here for procedure. No changes in medical issues. No major changes in urinary issues. Continued issues and concerns. No change in pain or discomfort. No severe fevers or chills. No chest pain or shortness of breath. Patient with 4.8 cm lesion of left adrenal gland. Risks and benefits discussed at length for procedure. These include bleeding, infection, injury to surrounding tissues or organs, and risks associated with anesthesia. Patient and/or family states understanding and agrees to proceed. Consent and supporting information completed. Admission Exam Per Admitting Provider General: Alert in no acute distress. HEENT: Inspection normal Psychologic: Normal affect. Respiratory: Nonlabored. No use of accessory muscles. Skin: Blevins and Dry. No rashes or visible lesions. Abdomen: Soft, nontender Principal Diagnosis left renal mass Discharge Exam Constitutional well developed and well nourished; no acute distress Respiratory normal respiratory effort; no respiratory distress and no labored breathing Gastrointestinal (Abdomen) Inspection/Auscultation: abdomen normal to inspection Musculoskeletal Head/Neck/Chest: normocephalic Skin incisions C/D/I Neurologic moves all extremities and awake Psychiatric Orientation: alert and oriented x 3 Discharge Data Allergies Allergy/AdvReac Type Severity Reaction Status Date / Time No Known Allergies Allergy Unknown Verified 11/23/23 06:19 Consultations 11/23/23 12:43 Consult Hospitalist Routine Procedures Performed Operation Date: 11/23/23 07:35 Actual Procedures p Robotic Assisted Laparoscopic Adrenalectomy - Left(Left) - Mark Padron DO Hospital Course (1) Adrenal mass, left: Patient is postop day #1 status post left adrenalectomy with Dr. Padron She is afebrile with stable vitals Labscreatinine 0.66, WBC 9.23, Hgb 10.5 Pain is adequately controlled with current regimen Will advance diet this morning Cristobal catheter out, monitor for void Encouraged ambulation in hallway Incisions appropriate Continue with hydrocortisone dosing per endocrinology until her follow-up Hospitalist service consulted for medical managementappreciate assistance Anticipate home later today if she continues to progress as expected Total Time Total Time Spent Total Time Spent (In Minutes): 29 Discharge Plan Discharge Items Patient Disposition: Home - Self-Care Reason For Visit: Left Adrenal Mass Discharge Diagnosis: Left adrenal mass Activity: Per Instructions section Lifting: No more than 25 pounds Bathing Comment: Okay to shower after discharge, no tub bath or soaking Sexual Activity: When tolerated Exercise/Sports: Wait until after follow-up appointment Driving/Machine Use: No driving while taking prescription pain medication Non-emergency contact: Surgeon and Urologist Call non-emergency contact if: your pain is worsening, you have a fever, your temperature is above 101, your wound has increased redness, your wound has increased drainage and your wound pain has increased Follow-up/Referrals: Kira Vogt M.D. [Primary Care Provider] - Diet: Carb Count or DM1 Addtl Attending Provider Instructions: Please take all medications as prescribed and keep all follow-ups as scheduled. Please call our office at [phone] with any questions, concerns or need to reschedule appointments for any reason. We are happy to assist you. Prescription was sent to your pharmacy for hydrocortisone per your proposal manager writer to continue until your follow-up appointment. Please take as directed. Recovering at home: We recommend having someone with you for the first few days after surgery to help care for you. It is okay to shower tomorrow. Please avoid swimming, bathing or using hot tub until incisions are well healed. Avoid driving until you are not requiring pain medication any further. Walk at least a few times a day. Increase your distance, as you feel able. Stairs in your home are okay. Please avoid strenuous or sexual activity until your follow-up. We recommend using stool softener (i.e. Colace) to prevent constipation and straining, especially the first two weeks post operatively. Call [facility] at [phone] if you experience: Chest pain or trouble breathing (call [phone] or go to the hospital). Fever of 101F or higher Symptoms of infection at incision site, including redness or swelling, warmth, or bad-smelling drainage If you have catheter, and you notice: o Bloody urine or drainage that is dark red or has large clots (Please remember a small amount of blood is normal) o No drainage from the catheter for more than 6 hours o The catheter comes out of your bladder Pain that is not controlled with medicines Addtl Buffing Turner And Counter Provider Instructions: Stop amlodipine Continue Metoprolol and lisinopril 20mg. Monitor for signs of hypotension - lightheadedness, dizziness Check BP 1 time per day Keep follow up with endocrinology, use the steroid setting on your pump. Pending Studies at Discharge: Yes (Pathology) Stand-Alone Forms: My [facility], Smoking Cessation Medications and DC Order Prescriptions: New hydrocortisone 10 mg tablet See Rx Instructions .ROUTE .COMPLEX Qty: 24 0RF Rx Instructions: Take 20 mg (2 tabs) in the morning, then 10 mg (1 tab) 8 hours later until endocrinology follow-up Continued atorvastatin 20 mg tablet 20 mg PO HS Qty: 90 3RF Apidra U-100 Insulin 100 unit/mL solution 50 unit continuous subcutaneous infusion QAM Qty: 50 1RF Hold Instructions: out of stock insulin aspart U-100 100 unit/mL solution 50 unit .ROUTE DAILY MDD 50 units Qty: 50 1RF Hold Instructions: on backorder Rx Instructions: 50 units daily; via insulin pump levothyroxine 112 mcg tablet 112 mcg PO Q OTHER DAY Qty: 45 1RF Rx Instructions: alternate every other day with 125mcg levothyroxine 125 mcg tablet 125 mcg PO Q OTHER DAY Qty: 45 1RF Rx Instructions: take every other day alternating with 112mcg. fluocinonide 0.05 % solution 1 applic topical BID PRN (Reason: Skin Irritation) metoprolol succinate 50 mg tablet extended release 24 hr 50 mg PO BID Patient Comments: 50mg AM and 50mg PM (DME) Ketostix Strip See Rx Instructions miscellaneous .MEDSUPPLY Qty: 25 11RF Rx Instructions: Check when blood sugar high > 240 fro 4 hours or more (DME) insulin syringe-needle U-100 [BD Insulin Syringe Ultra-Fine] 1 mL 31 gauge x 5/16 syringe See Rx Instructions .Route Qty: 100 1RF Rx Instructions: use once per day omeprazole 40 mg capsule,delayed release(DR/EC) 40 mg PO QAM PRN (Reason: Acid Reflux) (DME) Dexcom G6 Sensor Device See Rx Instructions .Route Qty: 2 0RF Rx Instructions: As directed (DME) t:slim X2 Basal-IQ Insulin Guard Immigration Misc See Rx Instructions .Route Qty: 1 0RF Rx Instructions: As directed Glucagon (HCl) Emergency Kit 1 mg recon soln 1 mg subcut Q20M PRN (Reason: hypoglycemia) Qty: 1 3RF Rx Instructions: until target blood sugar attained (DME) Accu-Chek Anastasia Plus test strp strip See Dose Instructions .ROUTE .MEDSUPPLY Qty: 10 Rx Instructions: Test blood sugars 4 times a day aspirin 81 mg tablet,chewable 81 mg PO DAILY Qty: 100 Basaglar KwikPen U-100 Insulin 100 unit/mL (3 mL) insulin pen 21 units SQ .COMPLEX Patient Comments: 21 unit SQ At bedtime in case of pump failure ; Rx Instructions: 21 unit SQ At bedtime in case of pump failure ; hydrocodone-acetaminophen 5-300 mg tablet 1 tab PO Q6H PRN (Reason: Pain) albuterol sulfate 90 mcg/actuation HFA aerosol inhaler 1 inh INHALATION QID PRN (Reason: sob) cholecalciferol (vitamin D3) [Vitamin D3] 50 mcg (2,000 unit) Capsule 50 mcg PO DAILY lisinopril 40 mg tablet 20 mg PO DAILY Rx Instructions: "I've only been taking 20mg" Discontinued amlodipine 5 mg tablet 5 mg PO DAILY Qty: 90 3RF Discharge Orders: Discharge Order (Routine); Ordered 11/24/23 Ordered By: Juliana Alarcon Admission Data Admit Date/Time: 11/23/23 10:46 Attending Provider: Mark Padron Admit Provider: Mark Padron Primary Care Provider: Kira Vogt Other Providers: Smooth Marie Other Interventions: Discharge Summary Assessment (RN) Last Done: 11/24/23 14:09 Coding Level of Care Code 71030 IN/OBS DISCH 30 MIN/LESS Diagnoses Adrenal mass, left E27.8
[2023-11-24] MEDS ORDERED: amLODIPine BESYLATE 5 MG TAB PO SCH (21:00)
[2023-11-25] MEDS ORDERED: LEVOTHYROXINE SODIUM 112 MCG TABLET PO SCH (06:30)
--- NOTE | 2023-11-29 14:20 | Coding Query ---
PATHOLOGY To promote full compliance with coding requirements relating to patient care, physician participation is requested in all cases of composition instructor uncertainty. Please assist us with the question(s) below: Please review the Pathology report and please document any relevant diagnosis(es) below: Adrenal Adenoma. Diagnosis(es): Thank you TOSHA Montero [facility]
== END 2023-11-24 15:39 | disposition home or self-care (01) | DRG 615 ==
LOC: ASU 05:56 → 3W 10:46 → INTOOBSV 10:46